=== PATIENT | male | born 1965 | race Caucasian/White ===

== ENCOUNTER 2017-04-19 10:49 | Inpatient (IN) | payer BC, OTHER ==
[2017-04-19] VITALS (32 sets, daily range): BP systolic 97–146; BP diastolic 58–104; PULSE 59–101; RESP 12–21; Ht 172.7 cm; Wt 67.0 kg
[~2017-04-19] VITALS: Ht 172.7 cm; Wt 67.0 kg
[~2017-04-19 10:49] MED LIST: AMIODARONE 150 MG INJ ONE; ATROPINE 1 MG/10 ML SYRINGE ONE
[2017-04-19] MEDS ORDERED: morphine 4 MG/ML VIAL IV STA (10:50)
[2017-04-19] MEDS ORDERED: HEPARIN 1000 UNITS/ML 10 ML INJ IV STA (10:50)
[2017-04-19] MEDS ORDERED: ONDANSETRON 4 MG INJ IV STA (10:50)
[2017-04-19] MEDS ORDERED: SOD CHLORIDE 0.9% 500 ML IV STA (10:50)
[2017-04-19] MEDS ORDERED: morphine 4 MG/ML VIAL ONE (10:59)
[2017-04-19] MEDS ORDERED: VERAPAMIL 5 MG INJ ONE (11:06)
[2017-04-19] MEDS ORDERED: MIDAZOLAM 1 MG/ML 2 ML INJ ONE (11:06)
[2017-04-19] MEDS ORDERED: LIDOCAINE 1% (MDV) 20 ML INJ ONE (11:06)
[2017-04-19] MEDS ORDERED: IODIXANOL LOCM 100 ML BTL ONE (11:06)
[2017-04-19] MEDS ORDERED: IOHEXOL 350MG/ML 50 ML BTL ONE (11:06)
[2017-04-19] MEDS ORDERED: HEPARIN 1000 UNITS/ML 10 ML INJ ONE (11:06)
[2017-04-19] MEDS ORDERED: FENTAnyl 50 MCG/ML VIAL ONE (11:06)
[2017-04-19] MEDS ORDERED: NITROGLYCERIN (IC) 100 MCG/ML INJ ONE (11:07)
--- NOTE | 2017-04-19 11:09 | ERD ---
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 This is a 51-year-old gentleman with no past medical history though he is a smoker. The patient presents with sudden onset right- sided chest pain and pressure with associated nausea and diaphoresis. EMS EKG showed ST elevation myocardial infarction. The patient has 8 out of 10 pain that is constant. No back pain. ROS All systems reviewed and are negative except as per history of present illness. Allergies Allergies: Coded Allergies: No Known Allergy (Unverified , 05/05/13) PMhx/Soc History of Surgery: No Anesthesia Reaction: No Hx Neurological Disorder: No Hx Respiratory Disorders: No Hx Cardiac Disorders: Yes (htn) Hx Psychiatric Problems: Yes (depression) Hx Miscellaneous Medical Probl: Yes (depressive d/o, htn) Hx Alcohol Use: No Hx Substance Use: No Hx Tobacco Use: Yes FmHx Family History: No diabetes Physical Exam Vitals Vital Signs Date Time Temp Pulse Resp B/P Pulse Ox O2 Delivery O2 Flow Rate FiO2 04/19/17 10:59 98.7 66 24 103/70 99 Physical Exam General: Diaphoretic, ill-appearing, uncomfortable Head: Normocephalic, atraumatic. Eyes: Pupils equally reactive, EOM intact ENT: Moist mucous membranes Neck: Supple, no lymphadenopathy Respiratory: Lungs clear bilaterally, no distress Cardiovascular: RRR, no murmurs, rubs, or gallops Abdominal: Soft, non-tender, non-distended, no peritoneal signs : Deferred MSK: No edema, no unilateral swelling, 5/5 strength, no pulse deficits Neurologic: Alert and oriented, moving all extremities, normal speech, no focal weakness, no cerebellar signs Skin: No rash Psych: Normal mood Result Diagram: 04/19/17 1100 04/19/17 1100 Results 24 hrs Laboratory Tests Test 04/19/17 11:00 White Blood Count 10.510^3/ul Red Blood Count 4.3710^6/ul Hemoglobin 13.6g/dl Hematocrit 40.3% Mean Corpuscular Volume 92.2fl Mean Corpuscular Hemoglobin 31.1pg Mean Corpuscular Hemoglobin Concent 33.7g/dl Red Cell Distribution Width 13.1% Platelet Count 13337^3/UL Mean Platelet Volume 10.9fl Neutrophils % 49.0% Lymphocytes % 40.4% Monocytes % 9.3% Eosinophils % 0.6% Basophils % 0.6% Nucleated Red Blood Cells % 0.0/100WBC Neutrophils # 5.210^3/ul Lymphocytes # 4.310^3/ul Monocytes # 1.010^3/ul Eosinophils # 0.110^3/ul Basophils # 0.110^3/ul Nucleated Red Blood Cells # 0.010^3/ul Prothrombin Time 14.0Sec Prothrombin Time Ratio 1.1 INR International Normalized Ratio 1.07 Activated Partial Thromboplast Time 50.7Sec Sodium Level 143mmol/L Potassium Level 3.7mmol/L Chloride Level 110mmol/L Carbon Dioxide Level 23mmol/L Anion Gap 14 Blood Urea Nitrogen 17mg/dl Creatinine 0.79mg/dl Glucose Level 126mg/dl Calcium Level 8.7mg/dl Troponin I Pending Current Medications Medications (Trade) Dose Ordered Sig/Vida Route PRN Reason Start Time Stop Time Status Last Admin Dose Admin Sodium Chloride (NS) 500 ml @ 500 mls/hr Q1H STAT IV 04/19/17 10:50 04/19/17 11:49 DC 04/19/17 11:10 Morphine Sulfate (morphine) 4 mg ONCE STAT IV 04/19/17 10:50 04/19/17 10:54 DC 04/19/17 11:10 Ondansetron HCl (Zofran Inj) 4 mg ONCE STAT IV 04/19/17 10:50 04/19/17 10:54 DC Heparin Sodium (Porcine) (Heparin (1000 Units/ml)) 4,020 unit ONCE STAT IV 04/19/17 10:50 04/19/17 10:54 DC 04/19/17 11:10 Procedures/MDM EKG, MONITORS, & DIAGNOSTIC IMAGING: Field EKG: EKG: I reviewed and interpreted a 12-lead EKG. Rhythm: Normal sinus rhythm Ectopy: None Intervals: No abnormalities ST segments: Inferior STEMI with reciprocal changes T waves: No contiguous inversions EKG in ER EKG: I reviewed and interpreted a 12-lead EKG. Rhythm: Normal sinus rhythm Ectopy: None Intervals: No abnormalities ST segments: ST elevations in inferior leads with reciprocal changes T waves: No contiguous inversions Chest x-ray: I reviewed and interpreted a 1 view of the chest Mediastinum: No enlargement Cardiac silhouette: No cardiomegaly Airspace: Mild interstitial process Bones: No evidence of fracture LAB INTERPRETATION: Pending MEDICAL DECISION MAKING: [facility] with an EKG is consistent with ST elevation myocardial infarction STEMI assessment and timing: Onset of symptoms: 20 minutes prior to arrival Arrival to ED: 1048 STEMI code activation: 1043 Initial conversation with cardiology: 1044 Patient taken to Electro Tech: 1101 nuclear security officer on-call: Dr. Morales Critical Care Note: Total time: 20 minutes Indication/Organ System Threat: Acute EKG changes suggestive of ST elevation myocardial infarction and significant risk for cardiovascular compromise and collapse. I spent the above amount of critical care time with the patient, not including billable procedures. This included chart review, consultations, repeat bedside evaluations, and titration of appropriate medications to prevent cardiopulmonary or respiratory collapse. ER COURSE: Upon arrival the patient was placed on the monitor. 2 large-bore peripheral IVs were inserted. Pacer pads and defibrillator pads were placed on the patient. The patient had received aspirin and nitroglycerin. No further nitroglycerin given inferior AR. The patient was written for weight-based dosing of heparin bolus based on recommendations by the plate stacker. Morphine and Zofran provided. Prior to transfer the patient is protecting his airway. The catheter team was readily available into the bedside. It should be noted that there was a delay in laboratory response time. The patient had labs drawn just prior to moving to the Electro Tech. I kept the patient and/or family informed of laboratory and diagnostic imaging results throughout the emergency room course. DISPOSITION PLAN: Patient emergently taken to the Electro Tech. CONSULTATION: Accepting care team and consultations: I discussed the current laboratory data, diagnostic imaging and emergency care provided. Admitting team: Dr. Peguero to accept the patient Admitting team indication: Insurance directed Consulting services: nuclear security officer, Dr Morales Departure Diagnosis: Primary Impression: STEMI (ST elevation myocardial infarction) Involved coronary artery: unspecified coronary artery Qualified Code: I21.3 - ST elevation myocardial infarction (STEMI), unspecified artery Condition: Critical TAD MON MD Apr 19, 2017 11:09
[2017-04-19 11:13] LABS: BASOPHIL # 0.1 10^3/ul (0.0-0.1); BASOPHILS % 0.6 % (0.0-2.0); EOSINOPHILS # 0.1 10^3/ul (0.0-0.5); EOSINOPHILS % 0.6 % (0.0-7.0); HEMATOCRIT 40.3 % (42.0-52.0); HEMOGLOBIN 13.6 g/dl (14.0-18.0); LYMPHOCYTES # 4.3 10^3/ul (0.8-2.9); LYMPHOCYTES % 40.4 % (15.0-51.0); MEAN CORPUSCULAR HEMOGLOBIN 31.1 pg (29.0-33.0); MEAN CORPUSCULAR HGB CONC 33.7 g/dl (32.0-37.0); MEAN CORPUSCULAR VOLUME 92.2 fl (82.0-101.0); MEAN PLATELET VOLUME 10.9 fl (7.4-10.4); MONOCYTES % 9.3 % (0.0-11.0); NEUTROPHIL # 5.2 10^3/ul (1.6-7.5); PLATELET COUNT 150 10^3/UL (140-415); RED BLOOD COUNT 4.37 10^6/ul (4.70-6.10); RED CELL DISTRIBUTION WIDTH 13.1 % (11.5-14.5); WHITE BLOOD COUNT 10.5 10^3/ul (4.8-10.8)
[2017-04-19] MEDS ORDERED: NORepinephrine 4 MG INJ ONE (11:14)
[2017-04-19] MEDS ORDERED: NORepinephrine 8MG/250 ML (PMX 250 ML ONE (11:17)
--- NOTE | 2017-04-19 11:20 | RADRPT ---
PROCEDURE: XR Chest. CLINICAL INDICATION: Chest pain TECHNIQUE: Single frontal view of the chest was obtained COMPARISON: None FINDINGS: The heart and mediastinum are within normal limits. The lungs are clear. There is no pleural effusion or pneumothorax. The bones and soft tissue show no acute change. IMPRESSION: No definite abnormalities are identified. RPTAT:AAJJ Corey Marquez Physician Date Time Electronically viewed and signed by Corey Marquez Physician on 04/19/2017 11:20 /
[2017-04-19 11:30] LABS: INR 1.07; PT RATIO 1.1
[2017-04-19 11:31] LABS: PARTIAL THROMBOPLASTIN TIME 50.7 Sec (25.0-35.0)
[2017-04-19] MEDS ORDERED: TICAGRELOR 90 MG TABLET ONE (11:34)
[2017-04-19 11:38] LABS: CALCIUM 8.7 mg/dl (8.4-10.2); POTASSIUM 3.7 mmol/L (3.5-5.1)
[2017-04-19 11:39] LABS: CREATININE 0.79 mg/dl (0.61-1.24)
[2017-04-19] MEDS ORDERED: SOD CHLORIDE 0.9% 1,000 ML ONE (11:39)
[2017-04-19] MEDS ORDERED: BIVALIRUDIN 250MG /NS 50 ML 50 ML IVPB ONE ×2 (11:40→11:50)
[2017-04-19] MEDS ORDERED: SOD CHLORIDE 0.9% 1,000 ML IV SCH (12:30)
--- NOTE | 2017-04-19 12:40 | CONS ---
Date/Time of Note Date/Time of Note DATE: 04/19/17 TIME: 12:32 Assessment/Plan Assessment/Plan Chief Complaint/Hosp Course Inferior STEMI: Cath with prox RCA 90% ulcerated plaque s/p PCI as well as mid PDA disease s/p PCI. Asymptomatic post-PCI. EF 55% by LV gram Cardiogenic shock: transient during PCI. Now off levopohed. Bradycardia: Transient during PCI, required one dose of atropine. Resolved. CAD Tobacco use: counseled on -ASA 81mg lifelong -ticagrelor 90mg BID -lipitor 80mg -metoprolol if HR/BP remain stable -echo -ICU observation Problems: Consultation Date/Type/Reason Admit Date/Time Date of Consultation: Apr 19, 2017 Type of Consultation: INterventional Cardiology Reason for Consultation inferior STEMI Referring Provider: TAD MON MD Hx of Present Illness 51 yo M with a h/o tobacco use, who presented with acute onset chest pail while at home. He was noted to have inferior ST elevation by paramedics for which STEMI was activated. Upon arrival the pt had confirmed ST elevations though improved. He looked very uncomfortable and was having severe chest pain. He was taken to the cardiac record label intern emergently where he underwent PCI of his prox RCA and mid PDA. He required levophed during the case but eventually stabilized and was off pressors and asymptomatic by the end of the case. per hpi Past Medical History per hPI Social History Smoking Status: Current every day smoker Exam/Review of Systems Vital Signs Vitals Vital Signs Date Time Temp Pulse Resp B/P Pulse Ox O2 Delivery O2 Flow Rate FiO2 04/19/17 11:02 Nasal Cannula 4 04/19/17 10:59 98.7 66 24 103/70 99 Exam Constitutional: alert, distress (severe distress pre-PCI exam, resolved post), oriented Head: atraumatic, normocephalic Neck: supple, No jvd Respiratory: clear to auscultation, No crackles/rales, No diminished breath sounds Cardiovascular: No edema, No regular rate and rhythm (tachycardic prior to PCI , normal after), No systolic murmur Gastrointestinal: non-tender, soft Musculoskeletal: nl extremities to inspection Extremities: normal pulses Neurological: nl mental status, nl speech Skin: No rash or lesions Results EKG by paramedics with significant inferior HIMANSHU EKG in ED with still diagnostic ST elevation but improved. Result Diagram: 04/19/17 1100 04/19/17 1100 Results 24 hrs Laboratory Tests Test 04/19/17 11:00 White Blood Count 10.5 Red Blood Count 4.37 L Hemoglobin 13.6 L Hematocrit 40.3 L Mean Corpuscular Volume 92.2 Mean Corpuscular Hemoglobin 31.1 Mean Corpuscular Hemoglobin Concent 33.7 Red Cell Distribution Width 13.1 Platelet Count 150 Mean Platelet Volume 10.9 H Neutrophils % 49.0 Lymphocytes % 40.4 Monocytes % 9.3 Eosinophils % 0.6 Basophils % 0.6 Nucleated Red Blood Cells % 0.0 Neutrophils # 5.2 Lymphocytes # 4.3 H Monocytes # 1.0 H Eosinophils # 0.1 Basophils # 0.1 Nucleated Red Blood Cells # 0.0 Prothrombin Time 14.0 Prothrombin Time Ratio 1.1 INR International Normalized Ratio 1.07 Activated Partial Thromboplast Time 50.7 H Sodium Level 143 Potassium Level 3.7 Chloride Level 110 Carbon Dioxide Level 23 Anion Gap 14 Blood Urea Nitrogen 17 Creatinine 0.79 Glucose Level 126 Calcium Level 8.7 Troponin I Pending Medications Medications Current Medications Miscellaneous Information HOLD all METFORMIN ... ONCE ONCE XX ; Start at 12:30; Stop 04/19/17 at 12:31; Status UNV Sodium Chloride (NS) 1,000 ml @ 75 mls/hr [id number] IV ; Start 04/19/17 at 12:30 ; Stop 04/19/17 at 17:29; Status UNV MAHESH CALDWELL Apr 19, 2017 12:40
--- NOTE | 2017-04-19 12:49 | OPR ---
Date/Time of Note Date/Time of Note DATE: 04/19/17 TIME: 12:41 Operative Report Preoperative Diagnosis Inferior STEMI Postoperative Diagnosis same, s/p PCI Surgeon see signature line Agency Trainer none Anesthesia Type: moderate sedation Estimated Blood Loss: minimal Transfusion none Specimen none Grafts/Implants none Complications none Procedure Description Procedure Date: 04/19/2017 Site Safety Coordinator/surgeon: Mahesh Morales MD. Procedures Performed: 1)Left heart catheterization with selective left and right coronary angiography. 2)Left ventricle angiography 3)Balloon angioplasty and stenting of the prox RCA with a Resolute Omar 2.5 x 26 and Resolute Omar 3.0 x 8 AISHA (overlapping) 4)Balloon angioplasty and stenting of the mid PDA with a Resolute [place] 2.25 x 22 AISHA Pre-operative Diagnosis:inferior STEMI Post-operative Diagnosis: same, s/p PCI of prox RCA and mid PDA Indications:51 yo M with a h/o tobacco use, who presented with acute onset chest pail while at home. He was noted to have inferior ST elevation by paramedics for which STEMI was activated. Upon arrival the pt had confirmed ST elevations though improved. He looked very uncomfortable and was having severe chest pain. He was taken to the cardiac clinical laboratory technician emergently Description of Procedure: After informed consent, the patient was brought to the cardiac catheterization lab. The procedure site was prepped and draped in usual manner. 5 mL lidocaine was injected into the right groin. Next using the Seldinger wall technique, the 6 samoan sheath was inserted into the right femoral artery. Next using the JL4 and JR4 guide, selective angiography of the left and right coronary arteries were obtained. The decision was made to proceed with PCI of the RCA. The 6 samoan JR4 guide was advanced and engaged into the right coronary artery. After appropriate anticoagulation and antiplatelets were given, the BMW angioplasty wire was advanced past the lesion. Tropine was given for bradycardia and levophed started for hypotension. Next the 2.0 X 12 balloon was used to dilate the prox/ mid lesion times 3 at a maximum of 8 charles. Then the mid PDA was dilated x 2 at 8 charles. The PDA was initially not stented as it was unclear if it was at least 2.25 mm in size. Subsequently, the Resolute Omar 2.5 x 26 stent was advanced to the prox/mid lesion and deployed at 12 charles.Angiography revealed a likely proximal stent edge dissection so a Resolute 3.0 x 8 stent was advanced and deployed at 12 charles (overlapping). The stent balloon was used to dilate the overlapping segment at 12 charles. NTG IC was given and the PDA was noted to be larger so the Resolute 2.25 x 22 stent was advanced to the mid PDA and deployed at nominal pressure. Next the prox stent was post dilated with the 2.75 X 15 noncompliant balloon times 3 at a maximum of 12 charles. Final angiography revealed SARKIS 3 flow, no edge dissection, and appropriate stent expansion. Next all equipment was removed and hemostasis was achieved by manual compression Findings: Anatomy/Hemodynamics: Left main: normal LAD:calcified, luminal irregularities Diagonal:luminal irregularities Circumflex:luminal irregularities Obtuse marginal:luminal irregularities RCA: prox-mid long ulcerated 90% PDA:mid 90% PLV:luminal irregularities LV angiography: at end of case showed EF 55% with mild inferior hypokinesis LV-Ao: no gradient LVEDP: 8 mmHg Contrast used: 200 mL Fluoroscopy time: 10.6 min Medications used: Versed 1 Fentanyl 50 Angiomax ASA given in ED ticagrelor 180mg Equipment used: 6 samoan JR 4 guide BMW angioplasty wire 2 x 12 balloon Omar 2.5 x 26, 3.0 x 8, 2.25 x 22 drug eluting stents 2.75 x 15 noncompliant balloon Estimated blood loss<10 mL. Specimen: none Grafts/implants: none Complications: none Assessment/Plan Inferior STEMI: Cath with prox RCA 90% ulcerated plaque s/p PCI as well as mid PDA disease s/p PCI. Asymptomatic post-PCI. EF 55% by LV gram Cardiogenic shock: transient during PCI. Now off levopohed. Bradycardia: Transient during PCI, required one dose of atropine. Resolved. CAD Tobacco use: counseled on -ASA 81mg lifelong -ticagrelor 90mg BID -lipitor 80mg -metoprolol if HR/BP remain stable -echo -ICU observation MAHESH MORALES Apr 19, 2017 12:49
[2017-04-19 13:29] LABS: TROPONIN-I 0.043 ng/ml (0.00-0.12)
--- NOTE | 2017-04-19 14:28 | HP ---
Date/Time of Note Date/Time of Note DATE: 04/19/17 TIME: 14:00 Assessment/Plan VTE Prophylaxis VTE Prophylaxis Intervention: SCD's Lines/Catheters IV Catheter Type [facility]from [facility]): Saline Lock Urinary Cath still in place: No Assessment/Plan Assessment/Plan 51-year-old male who was brought in by EMS because of chest pain and shortness of breath and was found to have ST elevation myocardial infarction now admitted and managed as follows: 1. Inferior wall ST elevation myocardial infarction status post emergent cardiac cath with proximal RCA 90% stenosis status post PCI and mid PDA disease also status post PCI with drug-eluting stent 2. Transient cardiogenic shock during procedure: Patient required short course of pressors, patient is currently off pressors continue monitoring 3. Chronic coronary artery disease: Patient has been started on aspirin, Brilinta, Lipitor, metoprolol as tolerated 4. Chronic tobacco abuse: Please see below Disposition: There is report of elevated blood pressure, but no evidence of hypertension at this time, we will continue to monitor. Continue ICU care and support at this time, pain control as necessary. Continue routine post catheterization care, Smoking Cessation Therapy: Pt. was lectured for greater than 3 minutes on the health risks of continued smoking and the benefits of cessation. and this will continue to be reinforced throughout hospitalization. Further interventions per clinical course HPI/ROS Admit Date/Time Admit Date/Time 04/19/17 Hx of Present Illness This is a 51-year-old male who developed sudden right-sided chest pain at home, it is associated with nausea and diaphoresis but no vomiting. There is no fever , no abdominal pain, no recent history of dysuria hematuria or cough. Patient also denies palpitation. Patient is a chronic smoker. He called EMS, when paramedics arrived the patient was found to be in an acute ST elevation myocardial infarction. He was given aspirin around the hospital, and immediately go to the hospital he was emergently taken to the Associate Software Engineer. He underwent PCI of his proximal RCA and mid PDA. Is currently being observed in the intensive care unit as is routine for post Procedures. He apparently suffered a transient episode of bradycardia as well as hypotension during the procedure. These were treated with short course of Levophed as well as atropine. She is currently somewhat drowsy, but he will arouse and answer questions, he states his pain is well controlled at this time. He has no new issues. ROS 12 point review if systems was done and pertinent findings are as noted. PMH/Family/Social Past Medical History * htn: no home meds * xic back pain * depression: no meds Past Surgical History Past Surgical Hx: no surgical history Social History Alcohol Use: occasionally Smoking Status: Current every day smoker Drug Use: none Exam/Review of Systems Vital Signs Vitals VS - Last 72 Hours, by Label Date Time Temp Pulse Resp B/P Pulse Ox O2 Delivery O2 Flow Rate FiO2 04/19/17 13:00 73 13 114/69 98 Room Air 04/19/17 12:15 98.2 101 15 110/68 99 Room Air 04/19/17 11:02 Nasal Cannula 4 04/19/17 10:59 98.7 66 24 103/70 99 Vital Signs Date Time Temp Pulse Resp B/P Pulse Ox O2 Delivery O2 Flow Rate FiO2 04/19/17 13:00 73 13 114/69 98 Room Air 04/19/17 12:15 98.2 04/19/17 11:02 4 Exam Constitutional: other (drowsy and lethargic) Head: atraumatic, normocephalic Eyes: PERRL Neck: supple Respiratory: clear to auscultation, diminished breath sounds Cardiovascular: regular rate and rhythm, No murmurs/extra sounds Gastrointestinal: bowel sounds, non-tender, soft Extremities: No edema Labs Result Diagram: 04/19/17 1100 04/19/17 1100 Medications Medications Current Medications Miscellaneous Information HOLD all METFORMIN ... ONCE XX ; Start 04/19/17 at 12 :30; Stop 04/21/17 at 12:29 Sodium Chloride (NS) 1,000 ml @ 75 mls/hr [id number] IV Last administered on t 13:29; Admin Dose 75 MLS/HR; Start 04/19/17 at 12:30; Stop 04/19/17 at 17:29 Aspirin (Aspirin) 81 mg DAILY PO ; Start 04/20/17 at 09:00 Ticagrelor (Brilinta) 90 mg BID PO ; Start 04/19/17 at 21:00 Atorvastatin Calcium (Lipitor) 80 mg HS PO ; Start 04/19/17 at 21:00 LIVE ROSAS Apr 19, 2017 14:11
[2017-04-19] MEDS ORDERED: morphine LIQ (10 MG/5 ML) CUP PO PRN (16:00)
[2017-04-19] MEDS ORDERED: DIPHENHYDRAMINE 50 MG INJ IV ONE ×2 (16:30→23:00)
[2017-04-19] MEDS ORDERED: ATROPINE 1 MG/10 ML SYRINGE ONE (17:14)
[2017-04-19 17:31] LABS: CK-MB 6.72 ng/ml (0.0-2.4)
[2017-04-19 17:33] LABS: TROPONIN-I 2.19 ng/ml (0.00-0.12)
--- NOTE | 2017-04-19 17:38 | RADRPT ---
Echocardiogram Report Patient Name: SILVINO SILVA Gender: Male Date: 1965 Study Date: 19-Apr-2017 Press Machine Operator: Shailesh Rizzo [facility] Location: [address] Ref. Physician: LIVE ROSAS Quality: Adequate Procedures: Transthoracic echocardiogram with complete 2D, M-Mode, and doppler examination. Indications: Stemi. 2D/M Mode Doppler Measurement Value Normal Ranges Measurement Value Normal Ranges LVIDd 2D 4.9 3.5 - 5.6 cm AV Peak Brien 1.3 m/sec LVIDs 2D 3.2 2.1 - 4.1 cm AV Peak PG 7.0 mmHg FS 2D 35.4 % LVOT Peak Brien 0.8 m/sec LVPWd 2D 1.0 0.6 - 1.1 cm LVOT Peak PG 3.0 mmHg IVSd 2D 1.0 0.6 - 1.1 cm MV E Peak Brien 0.8 m/sec IVS/LVPW 2D 1.0 MV A Peak Brien 0.6 m/sec AoR Diam 2D 2.2 2.0 - 3.7 cm MV E/A 1.3 LA/Ao 2D 1 0 - 1 MV Decel Time 173 msec EDV 2D 121.0 cm3 MV E/A 1.3 ESV 2D 32.5 cm3 TR Peak Brien 3.2 m/sec LA Dimen 2D 3.0 2.3 - 4.0 cm TR Peak PG 40.0 mmHg RVSP 43.0 mmHg Findings Left Ventricle: Normal left ventricular systolic function. Normal left ventricular cavity size. Normal left ventricular wall thickness. Ejection fraction is visually estimated at 60 %. Right Ventricle: Normal right ventricular size. Normal right ventricular systolic function. Left Atrium: The left atrium is normal in size. Right Atrium: The right atrium is normal in size. Mitral Valve: Mild mitral leaflet calcification. Mild mitral annular calcification. Trace mitral regurgitation. Aortic Valve: Normal appearance of the aortic valve. Tricuspid Valve: Normal appearance of the tricuspid valve. Estimated peak PA systolic pressure 43 mmHg. There is mild to moderate tricuspid regurgitation. Pulmonic Valve: Pulmonic valve not well visualized. There is trace pulmonic regurgitation. Pericardium: Normal pericardium with no significant pericardial effusion. Aorta: Normal aortic root. IVC: Normal size and normal respiratory collapse consistent with normal right atrial pressure. Conclusions 1.The left ventricle is normal in size and systolic function. 2.Estimated left ventricular ejection fraction of 60%. Electronically Signed By: Ajith Woody 19-Apr-2017 17:37:32 -0800 Patient Name: SILVINO SILVA Study Date: 19-Apr-[id number]
--- NOTE | 2017-04-19 20:35 | RADRPT ---
Vent Rate: 73 bpm RR Interval: 0 msec NE Interval: 128 msec QRS Duration: 82 msec QT Interval: 368 msec QTC Interval: 405 msec P-R-T [place]: 69 - 74 - 74 degrees Normal sinus rhythm with sinus arrhythmia Normal ECG Electronically Signed By: Roderick Jimenez [id number]
[2017-04-19] MEDS: ATORVASTATIN 80 MG TAB PO SCH (21:02)
[2017-04-19] MEDS: TICAGRELOR 90 MG TABLET PO SCH (21:02)
[2017-04-19] MEDS: LORAZEPAM 0.5 MG TAB PO PRN (22:53)
[2017-04-19 23:57] LABS: CK-MB 11.9 ng/ml (0.0-2.4); TROPONIN-I 7.18 ng/ml (0.00-0.12)
[2017-04-20] VITALS (27 sets, daily range): BP systolic 102–154; BP diastolic 57–92; PULSE 73–90; RESP 13–25
[2017-04-20] MEDS: NICOTINE (21 MG/24 HR) PATCH TRANSDERM SCH ×2 (00:39→08:31)
[2017-04-20 06:37] LABS: BASOPHILS % 0.3 % (0.0-2.0); EOSINOPHILS # 0.1 10^3/ul (0.0-0.5); EOSINOPHILS % 0.6 % (0.0-7.0); HEMATOCRIT 39.6 % (42.0-52.0); HEMOGLOBIN 13.2 g/dl (14.0-18.0); LYMPHOCYTES # 2.2 10^3/ul (0.8-2.9); LYMPHOCYTES % 22.6 % (15.0-51.0); MEAN CORPUSCULAR HGB CONC 33.3 g/dl (32.0-37.0); MEAN PLATELET VOLUME 11.3 fl (7.4-10.4); MONOCYTE # 0.7 10^3/ul (0.3-0.9); NEUTROPHIL # 6.7 10^3/ul (1.6-7.5); NEUTROPHILS % 69.2 % (39.0-77.0); PLATELET COUNT 162 10^3/UL (140-415); RED BLOOD COUNT 4.26 10^6/ul (4.70-6.10); RED CELL DISTRIBUTION WIDTH 13.2 % (11.5-14.5); WHITE BLOOD COUNT 9.6 10^3/ul (4.8-10.8)
[2017-04-20 07:01] LABS: CALCIUM 8.8 mg/dl (8.4-10.2); CHOL/HDL RATIO 5.7 RATIO; CREATININE 0.79 mg/dl (0.61-1.24); MAGNESIUM 1.9 mg/dl (1.7-2.5); PHOSPHORUS 3.1 mg/dl (2.5-4.9)
[2017-04-20] MEDS: ASPIRIN 81 MG TAB PO SCH (08:30)
[2017-04-20] MEDS: TICAGRELOR 90 MG TABLET PO SCH ×2 (08:32→22:39)
[2017-04-20] MEDS ORDERED: NICOTINE (21 MG/24 HR) PATCH TRANSDERM SCH (09:00)
--- NOTE | 2017-04-20 09:29 | PN ---
Date/Time of Note Date/Time of Note DATE: 04/20/17 TIME: 09:28 Assessment/Plan VTE Prophylaxis VTE Prophylaxis Intervention: SCD's Lines/Catheters IV [facility]ter Type (from [facility]): Peripheral IV Urinary Cath still in place: No Assessment/Plan Assessment/Plan 51-year-old male who was brought in by EMS because of chest pain and shortness of breath and was found to have ST elevation myocardial infarction now admitted and managed as follows: 1. Inferior wall ST elevation myocardial infarction status post emergent cardiac cath with proximal RCA 90% stenosis status post PCI and mid PDA disease also status post PCI with drug-eluting stent 2. Transient cardiogenic shock during procedure: Patient required short course of pressors, patient is currently off pressors continue monitoring 3. Chronic coronary artery disease: Patient has been started on aspirin, Brilinta, Lipitor, metoprolol as tolerated 4. Chronic tobacco abuse: Please see below Disposition: Patient is much improved. Will transfer to [facility] if ok with cardiology, defer d/ c timing to cards Continue current supportive care. Smoking Cessation Therapy: Pt. has been advised for greater than 3 minutes on the health risks of continued smoking and the benefits of cessation. and this will continue to be reinforced throughout hospitalization. Further interventions per clinical course Subjective 24 Hr Interval Summary Free Text/Dictation patient seen, no more CP or SOB, desires d/c Exam/Review of Systems Vital Signs Vitals Vital Signs Date Time Temp Pulse Resp B/P Pulse Ox O2 Delivery O2 Flow Rate FiO2 04/20/17 08:00 90 04/20/17 07:00 97.7 18 125/77 97 Room Air 04/19/17 11:02 4 Intake and Output 04/19/17 04/19/17 04/20/17 15:00 23:00 07:00 Intake Total 150 ml 645 ml 150 ml Output Total 350 ml 100 ml Balance 150 ml 295 ml 50 ml Exam Constitutional: alert, oriented, No distress Psych: nl mood/affect Head: atraumatic, normocephalic Eyes: PERRL ENMT: mucosa pink and moist Neck: non-tender, supple Respiratory: clear to auscultation, normal air movement Cardiovascular: regular rate and rhythm, No murmurs/extra sounds Gastrointestinal: bowel sounds, non-tender, soft Extremities: No edema Results Result Diagram: 04/20/17 0600 04/20/17 0600 Results 24 hrs Laboratory Tests Test 04/19/17 11:00 04/19/17 16:35 04/19/17 23:01 04/20/17 06:00 White Blood Count 10.5 9.6 Red Blood Count 4.37 L 4.26 L Hemoglobin 13.6 L 13.2 L Hematocrit 40.3 L 39.6 L Mean Corpuscular Volume 92.2 93.0 Mean Corpuscular Hemoglobin 31.1 31.0 Mean Corpuscular Hemoglobin Concent 33.7 33.3 Red Cell Distribution Width 13.1 13.2 Platelet Count 150 162 Mean Platelet Volume 10.9 H 11.3 H Neutrophils % 49.0 69.2 Lymphocytes % 40.4 22.6 Monocytes % 9.3 7.0 Eosinophils % 0.6 0.6 Basophils % 0.6 0.3 Nucleated Red Blood Cells % 0.0 0.0 Neutrophils # 5.2 6.7 Lymphocytes # 4.3 H 2.2 Monocytes # 1.0 H 0.7 Eosinophils # 0.1 0.1 Basophils # 0.1 0.0 Nucleated Red Blood Cells # 0.0 0.0 Prothrombin Time 14.0 Prothrombin Time Ratio 1.1 INR International Normalized Ratio 1.07 Activated Partial Thromboplast Time 50.7 H Sodium Level 143 142 Potassium Level 3.7 4.0 Chloride Level 110 108 Carbon Dioxide Level 23 28 Anion Gap 14 10 Blood Urea Nitrogen 17 15 Creatinine 0.79 0.79 Glucose Level 126 101 Calcium Level 8.7 8.8 Troponin I 0.043 2.190 *H 7.180 *H Creatine Kinase 190 320 H Creatine Kinase Index 3.5 3.7 Creatinine Kinase MB (Mass) 6.72 H 11.90 H Phosphorus Level 3.1 Magnesium Level 1.9 Triglycerides Level 160 H Cholesterol Level 189 LDL Cholesterol, Calculated 124 HDL Cholesterol 33 Cholesterol/HDL Ratio 5.7 Test 04/20/17 06:01 Hemoglobin A1c 5.1 Medications Medications Current Medications Miscellaneous Information (* Miscellaneous Pharmacy Order) HOLD all METFORMIN ... ONCE XX ; Start 04/19/17 at 12:30; Stop 04/21/17 at 12:29 Aspirin (Aspirin) 81 mg DAILY PO Last administered on 04/20/17t 08:30; Admin Dose 81 MG; Start 04/20/17 at 09:00 Ticagrelor (Brilinta) 90 mg BID PO Last administered on 04/20/17 08:32; Admin Dose 90 MG; Start 04/19/17 at 21:00 Atorvastatin Calcium (Lipitor) 80 mg HS PO Last administered on 04/19/17 21: 02; Admin Dose 80 MG; Start 04/19/17 at 21:00 Lorazepam (Ativan) 0.5 mg Q6H PRN PO AGITATION/ANXIETY Last administered on 22:53; Admin Dose 0.5 MG; Start 04/19/17 at 16:00 Morphine Sulfate (morphine) 6 mg Q4H PRN PO PAIN; Start 04/19/17 at 16:00 Nicotine (Nicoderm 21 Mg/ 24hr) 1 patch DAILY TRANSDERM Last administered on 08:31; Admin Dose 1 PATCH; Start 04/20/17 at 00:00 LIVE ROSAS Apr 20, 2017 09:29
[2017-04-20] MEDS: METOPROLOL (XL) 25 MG TAB PO SCH (10:26)
--- NOTE | 2017-04-20 13:04 | CONS ---
Date/Time of Note Date/Time of Note DATE: 04/20/17 TIME: 13:03 Assessment/Plan Assessment/Plan Chief Complaint/Hosp Course Inferior STEMI: Cath with prox RCA 90% ulcerated plaque s/p PCI as well as mid PDA disease s/p PCI. Asymptomatic post-PCI. EF 55% by LV gram Cardiogenic shock: transient during PCI. Now off levopohed. Bradycardia: Transient during PCI, required one dose of atropine. Resolved. CAD Tobacco use: counseled on -ASA 81mg lifelong -ticagrelor 90mg BID -lipitor 80mg -start metoprolol succ 25mg daily -f/u echo -ok to transfer to tele -home in am if no issues Problems: Consultation Date/Type/Reason Admit Date/Time Apr 19, 2017 at 14:08 Initial Consult Date 04/19/17 Type of Consultation: Interventional Cardiology Referring Provider: TAD MON MD 24 HR Interval Summary Free Text/Dictation No o/n events. No symptoms. Very eager to go home but agreeable to staying Exam/Review of Systems Vital Signs Vitals Vital Signs Date Time Temp Pulse Resp B/P Pulse Ox O2 Delivery O2 Flow Rate FiO2 04/20/17 12:00 79 04/20/17 09:00 17 132/92 97 Room Air 04/20/17 07:00 97.7 04/19/17 11:02 4 Intake and Output 04/19/17 04/19/17 04/20/17 15:00 23:00 07:00 Intake Total 150 ml 645 ml 150 ml Output Total 350 ml 100 ml Balance 150 ml 295 ml 50 ml Exam Constitutional: alert, oriented Psych: nl mood/affect, no complaints Head: atraumatic, normocephalic Neck: No jvd Respiratory: clear to auscultation, No crackles/rales Cardiovascular: regular rate and rhythm, No edema Gastrointestinal: non-tender, soft Extremities: other (right groin no hematoma ) Neurological: nl mental status, nl speech Results Result Diagram: 04/20/17 0600 04/20/17 0600 Results 24 hrs Laboratory Tests Test 04/19/17 16:35 04/19/17 23:01 04/20/17 06:00 04/20/17 06:01 Creatine Kinase 190 320 H Creatine Kinase Index 3.5 3.7 Creatinine Kinase MB (Mass) 6.72 H 11.90 H Troponin I 2.190 *H 7.180 *H White Blood Count 9.6 Red Blood Count 4.26 L Hemoglobin 13.2 L Hematocrit 39.6 L Mean Corpuscular Volume 93.0 Mean Corpuscular Hemoglobin 31.0 Mean Corpuscular Hemoglobin Concent 33.3 Red Cell Distribution Width 13.2 Platelet Count 162 Mean Platelet Volume 11.3 H Neutrophils % 69.2 Lymphocytes % 22.6 Monocytes % 7.0 Eosinophils % 0.6 Basophils % 0.3 Nucleated Red Blood Cells % 0.0 Neutrophils # 6.7 Lymphocytes # 2.2 Monocytes # 0.7 Eosinophils # 0.1 Basophils # 0.0 Nucleated Red Blood Cells # 0.0 Sodium Level 142 Potassium Level 4.0 Chloride Level 108 Carbon Dioxide Level 28 Anion Gap 10 Blood Urea Nitrogen 15 Creatinine 0.79 Glucose Level 101 Calcium Level 8.8 Phosphorus Level 3.1 Magnesium Level 1.9 Triglycerides Level 160 H Cholesterol Level 189 LDL Cholesterol, Calculated 124 HDL Cholesterol 33 Cholesterol/HDL Ratio 5.7 Hemoglobin A1c 5.1 Medications Medications Current Medications Miscellaneous Information (* Miscellaneous Pharmacy Order) HOLD all METFORMIN ... ONCE XX ; Start 04/19/17 at 12:30; Stop 04/21/17 at 12:29 Aspirin (Aspirin) 81 mg DAILY PO Last administered on 04/20/17 08:30; Admin Dose 81 MG; Start 04/20/17 at 09:00 Ticagrelor (Brilinta) 90 mg BID PO Last administered on 04/20/17 08:32; Admin Dose 90 MG; Start 04/19/17 at 21:00 Atorvastatin Calcium (Lipitor) 80 mg HS PO Last administered on 04/19/17 21: 02; Admin Dose 80 MG; Start 04/19/17 at 21:00 Lorazepam (Ativan) 0.5 mg Q6H PRN PO AGITATION/ANXIETY Last administered on 22:53; Admin Dose 0.5 MG; Start 04/19/17 at 16:00 Morphine Sulfate (morphine) 6 mg Q4H PRN PO PAIN; Start 04/19/17 at 16:00 Nicotine (Nicoderm 21 Mg/ 24hr) 1 patch DAILY TRANSDERM Last administered on 08:31; Admin Dose 1 PATCH; Start 04/20/17 at 00:00 Metoprolol Succinate (Toprol Xl) 25 mg DAILY PO Last administered on t 10:26; Admin Dose 25 MG; Start 04/20/17 at 10:00 MAHESH CALDWELL Apr 20, 2017 13:04
[2017-04-20] MEDS ORDERED: DIPHENHYDRAMINE 50 MG INJ IV ONE (16:30)
[2017-04-20] MEDS ORDERED: DIPHENHYDRAMINE 50 MG CAP PO PRN (21:00)
[2017-04-20] MEDS: ATORVASTATIN 80 MG TAB PO SCH (21:07)
[2017-04-20] MEDS: LORAZEPAM 0.5 MG TAB PO PRN (22:39)
[2017-04-21 00:26] VITALS: BP 109/56; RESP 19
[2017-04-21 00:41] VITALS: PULSE 78
[2017-04-21 04:00] VITALS: BP 123/74; RESP 18
[2017-04-21 04:14] VITALS: PULSE 70
[2017-04-21 07:51] VITALS: BP 128/68; RESP 17
[2017-04-21] MEDS: ASPIRIN 81 MG TAB PO SCH (08:36)
[2017-04-21] MEDS: NICOTINE (21 MG/24 HR) PATCH TRANSDERM SCH (08:36)
[2017-04-21 08:37] VITALS: PULSE 68
[2017-04-21] MEDS: METOPROLOL (XL) 25 MG TAB PO SCH (08:37)
[2017-04-21] MEDS: TICAGRELOR 90 MG TABLET PO SCH (08:39)
[2017-04-21 09:34] LABS: BASOPHILS % 0.3 % (0.0-2.0); EOSINOPHILS # 0.1 10^3/ul (0.0-0.5); EOSINOPHILS % 0.6 % (0.0-7.0); HEMATOCRIT 40.8 % (42.0-52.0); HEMOGLOBIN 13.7 g/dl (14.0-18.0); LYMPHOCYTES # 1.8 10^3/ul (0.8-2.9); LYMPHOCYTES % 18.9 % (15.0-51.0); MEAN CORPUSCULAR HEMOGLOBIN 30.8 pg (29.0-33.0); MEAN CORPUSCULAR HGB CONC 33.6 g/dl (32.0-37.0); MEAN CORPUSCULAR VOLUME 91.7 fl (82.0-101.0); MEAN PLATELET VOLUME 11.3 fl (7.4-10.4); MONOCYTE # 0.6 10^3/ul (0.3-0.9); MONOCYTES % 6.9 % (0.0-11.0); NEUTROPHIL # 6.7 10^3/ul (1.6-7.5); PLATELET COUNT 167 10^3/UL (140-415); RED BLOOD COUNT 4.45 10^6/ul (4.70-6.10); RED CELL DISTRIBUTION WIDTH 13.1 % (11.5-14.5); WHITE BLOOD COUNT 9.3 10^3/ul (4.8-10.8)
[2017-04-21 09:55] LABS: CALCIUM 9.2 mg/dl (8.4-10.2); CREATININE 0.74 mg/dl (0.61-1.24); POTASSIUM 4.1 mmol/L (3.5-5.1)
[2017-04-21] MEDS ORDERED: NICO1PAT6 TRANSDERM (10:51)
[2017-04-21] MEDS ORDERED: METO-335 PO (10:51)
[2017-04-21] MEDS ORDERED: ASPI81TA3 PO (10:51)
[2017-04-21] MEDS ORDERED: TICA90TA PO (10:51)
[2017-04-21] MEDS ORDERED: ATOR80TA75 PO (10:51)
--- NOTE | 2017-04-21 10:54 | PDOCDIS ---
Discharge Instructions DIAGNOSIS Discharge Diagnosis Cardiac arrest (STEMI) 51-year-old male who was brought in by EMS because of chest pain and shortness of breath and was found to have ST elevation myocardial infarction now admitted and managed as follows: 1. Inferior wall ST elevation myocardial infarction status post emergent cardiac cath with proximal RCA 90% stenosis status post PCI and mid PDA disease also status post PCI with drug-eluting stent 2. Transient cardiogenic shock during procedure: Patient required short course of pressors, resolved 3. Chronic coronary artery disease: Patient has been started on aspirin, Brilinta, Lipitor, metoprolol as tolerated 4. Chronic tobacco abuse: s/p cessation counselling . CONDITION Patient Condition: Stable HOME CARE INSTRUCTIONS: Special Diet: Low fat- low cholesterol ACTIVITY: Activity Restrictions: Slowly Increase Activity Rest between Activity FOLLOW UP/APPOINTMENTS Follow-up Plan * It's important you take your brilinta for at least a year! * Followup with your primary doctor within the next 1-2 weeks. If you don't have one please let someone know, we can give you resources that may help you pick one. You may call Dr Narayan Quigley's office. he's accepting new patients Name, Degree: Narayan Quigley MD Specialty: Internal Medicine Comments: Office Address: [address] [place] [address] Office Office You may also call your insurance company to assign one to you. * Review your medication list with your nurse before leaving and if you need new prescriptions please let your nurse know. * I may have made changes to your home medications or given you new prescriptions, please let your primary doctor know as well. * Stay compliant with your medications and report any side effects to your PCP or pharmacist. * Return to the ER if you have any concerns and cannot reach your doctors or call your insurance company, they usually have a nurse that can help you. . LIVE ROSAS Apr 21, 2017 10:54
[2017-04-21] MEDS ORDERED: VARE1TAB20 PO (11:03)
--- NOTE | 2017-04-21 11:04 | PDOCDIS ---
Discharge Instructions DIAGNOSIS Discharge Diagnosis Cardiac arrest (STEMI) 51-year-old male who was brought in by EMS because of chest pain and shortness of breath and was found to have ST elevation myocardial infarction now admitted and managed as follows: 1. Inferior wall ST elevation myocardial infarction status post emergent cardiac cath with proximal RCA 90% stenosis status post PCI and mid PDA disease also status post PCI with drug-eluting stent 2. Transient cardiogenic shock during procedure: Patient required short course of pressors, resolved 3. Chronic coronary artery disease: Patient has been started on aspirin, Brilinta, Lipitor, metoprolol as tolerated 4. Chronic tobacco abuse: s/p cessation counselling . CONDITION Patient Condition: Stable HOME CARE INSTRUCTIONS: Special Diet: Low fat- low cholesterol ACTIVITY: Activity Restrictions: Slowly Increase Activity Rest between Activity FOLLOW UP/APPOINTMENTS Follow-up Plan * It's important you take your brilinta for at least a year! * Followup with your primary doctor within the next 1-2 weeks. If you don't have one please let someone know, we can give you resources that may help you pick one. You may call Dr Narayan Quigley's office. he's accepting new patients Name, Degree: Narayan Quigley MD Specialty: Internal Medicine Comments: Office Address: [address] [place] [address] Office Office You may also call your insurance company to assign one to you. * Review your medication list with your nurse before leaving and if you need new prescriptions please let your nurse know. * I may have made changes to your home medications or given you new prescriptions, please let your primary doctor know as well. * Stay compliant with your medications and report any side effects to your PCP or pharmacist. * Return to the ER if you have any concerns and cannot reach your doctors or call your insurance company, they usually have a nurse that can help you. . REFERRALS Other Referrals Name, Degree Tez Morales MD Specialty Interventional Cardiology Comments Office Address [address] [place] [address] Office Office LIVE ROSAS Apr 21, 2017 11:04
--- NOTE | 2017-04-21 13:38 | DS ---
Date/Time of Note Date/Time of Note DATE: 04/21/17 TIME: 13:35 Discharge Summary Admission/Discharge Info Admit Date/Time Apr 19, 2017 at 14:08 Discharge Date/Time Apr 21, 2017 at 11:45 Discharge Diagnosis Cardiac arrest (STEMI) 51-year-old male who was brought in by EMS because of chest pain and shortness of breath and was found to have ST elevation myocardial infarction now admitted and managed as follows: 1. Inferior wall ST elevation myocardial infarction status post emergent cardiac cath with proximal RCA 90% stenosis status post PCI and mid PDA disease also status post PCI with drug-eluting stent 2. Transient cardiogenic shock during procedure: Patient required short course of pressors, resolved 3. Chronic coronary artery disease: Patient has been started on aspirin, Brilinta, Lipitor, metoprolol as tolerated 4. Chronic tobacco abuse: s/p cessation counselling . Hx of Present Illness This is a 51-year-old male who developed sudden right-sided chest pain at home, it is associated with nausea and diaphoresis but no vomiting. There is no fever , no abdominal pain, no recent history of dysuria hematuria or cough. Patient also denies palpitation. Patient is a chronic smoker. He called EMS, when paramedics arrived the patient was found to be in an acute ST elevation myocardial infarction. He was given aspirin around the hospital, and immediately go to the hospital he was emergently taken to the [facility]. He underwent PCI of his proximal RCA and mid PDA. Is currently being observed in the intensive care unit as is routine for post Procedures. He apparently suffered a transient episode of bradycardia as well as hypotension during the procedure. These were treated with short course of Levophed as well as atropine. She is currently somewhat drowsy, but he will arouse and answer questions, he states his pain is well controlled at this time. He has no new issues. Hospital Course 51-year-old male who was admitted for ST elevation myocardial infarction and underwent emergent angiogram and stent placement. Patient was observed intensive care unit, and also on telemetry floor for a total of 48 hours postintervention. At this time patient is a stable condition for discharge. Patient was counseled extensively on the need to quit smoking, was discharged on nicotine patches and Chantix therapy. Patient was also counseled on the need to remain compliant with antiplatelet therapy specifically Brilinta for at least a year. Unfortunately we found that Brilinta was not covered by patient' s insurance, so he was given a coupon from the company that will allow him to obtain the first month free, and a low co-pay for the next 3 months. Patient was encouraged to discuss with his primary care physician to obtain prior authorization for this drug before he runs out. Patient verbalized understanding and agreement with all these instructions and will follow up with his primary care doctor within 1-2 weeks. . Home Meds Active Scripts Varenicline Tartrate (Chantix) 1 Mg Tablet, 1 MG PO BID for 30 Days, TAB Prov:LIVE ROSAS M. 04/21/17 Aspirin (Aspirin) 81 Mg Chew, 81 MG PO DAILY for 30 Days, TAB 2 [facility] 04/[facility]17 Metoprolol Succinate* (Toprol XL*) 25 Mg Tab.sr.24h, 25 MG PO DAILY for 30 Days , 2 [facility] 04/21/17 Atorvastatin* (Atorvastatin*) 80 Mg Tablet, 80 MG PO HS for 30 Days, TAB 2 Refills Prov:LIVE ROSAS . 04/21/17 Ticagrelor* (Brilinta*) 90 Mg Tablet, 90 MG PO BID for 30 Days, TAB 3 Refills Prov:LIVE ROSAS . 04/21/17 Nicotine* (Nicotine* Patch) 21 mg/day Patch, 1 PATCH TRANSDERM DAILY for 30 Days , 2 Refills Prov:LIVE ROSAS . 04/21/17 Follow-up Plan * It's important you take your brilinta for at least a year! * Followup with your primary doctor within the next 1-2 weeks. If you don't have one please let someone know, we can give you resources that may help you pick one. You may call Dr Narayan Quigley's office. he's accepting new patients Name, Degree: Narayan Quigley MD Specialty: Internal Medicine Comments: Office Address: [address] [place], [place] [id number] Office Office You may also call your insurance company to assign one to you. * Review your medication list with your nurse before leaving and if you need new prescriptions please let your nurse know. * I may have made changes to your home medications or given you new prescriptions, please let your primary doctor know as well. * Stay compliant with your medications and report any side effects to your PCP or pharmacist. * Return to the ER if you have any concerns and cannot reach your doctors or call your insurance company, they usually have a nurse that can help you. . Primary Care Provider Benjamin Quispe MD Time spent on discharge: > 30 minutes Pending Labs Laboratory Tests Test 04/21/17 08:15 White Blood Count 9.310^3/ul (4.8-10.8) Red Blood Count 4.4510^6/ul (4.70-6.10) Hemoglobin 13.7g/dl (14.0-18.0) Hematocrit 40.8% (42.0-52.0) Mean Corpuscular Volume 91.7fl (82.0-101.0) Mean Corpuscular Hemoglobin 30.8pg (29.0-33.0) Mean Corpuscular Hemoglobin Concent 33.6g/dl (32.0-37.0) Red Cell Distribution Width 13.1% (11.5-14.5) Platelet Count 90896^3/UL (140-415) Mean Platelet Volume 11.3fl (7.4-10.4) Neutrophils % 73.0% (39.0-77.0) Lymphocytes % 18.9% (15.0-51.0) Monocytes % 6.9% (0.0-11.0) Eosinophils % 0.6% (0.0-7.0) Basophils % 0.3% (0.0-2.0) Nucleated Red Blood Cells % 0.0/100WBC (0.0-0.0) Neutrophils # 6.710^3/ul (1.6-7.5) Lymphocytes # 1.810^3/ul (0.8-2.9) Monocytes # 0.610^3/ul (0.3-0.9) Eosinophils # 0.110^3/ul (0.0-0.5) Basophils # 0.010^3/ul (0.0-0.1) Nucleated Red Blood Cells # 0.010^3/ul (0.0-0.0) Sodium Level 142mmol/L (135-144) Potassium Level 4.1mmol/L (3.5-5.1) Chloride Level 106mmol/L (97-110) Carbon Dioxide Level 26mmol/L (21-31) Anion Gap 14 (8-16) Blood Urea Nitrogen 15mg/dl (7-20) Creatinine 0.74mg/dl (0.61-1.24) Glucose Level 103mg/dl (70-220) Calcium Level 9.2mg/dl (8.4-10.2) LIVE ROSAS. Apr 21, 2017 13:38
== END 2017-04-21 11:45 | disposition home or self-care (01) | DRG 246 ==
LOC: E/R 10:49 → SDS 11:01 → CCL 11:01 → REC 14:08 → ICU 15:04 → MS4 04-20 17:50
PROVIDERS: ADMIT Family Medicine; ATTEND Family Medicine
PROC: 4A023N7 Measurement of Cardiac Sampling and Pressure, Left Heart, Percutaneous Approach (ICD-10-PCS; 2017-04-19)
PROC: B211YZZ Fluoroscopy of Multiple Coronary Arteries using Other Contrast (ICD-10-PCS; 2017-04-19)
PROC: B215YZZ Fluoroscopy of Left Heart using Other Contrast (ICD-10-PCS; 2017-04-19)
PROC: 027036Z Dilation of Coronary Artery, One Artery with Three Drug-eluting Intraluminal Devices, Percutaneous Approach (ICD-10-PCS; principal; 2017-04-19 11:00)
PROC: 02703ZZ Dilation of Coronary Artery, One Artery, Percutaneous Approach (ICD-10-PCS; 2017-04-19 11:00)
DX: I21.19 ST elevation (STEMI) myocardial infarction involving other coronary artery of inferior wall (principal); R57.0 Cardiogenic shock; R00.1 Bradycardia, unspecified; I25.10 Atherosclerotic heart disease of native coronary artery without angina pectoris; F17.200 Nicotine dependence, unspecified, uncomplicated
CPT/HCPCS: 71010; 80048; 80061; 82550; 82553; 83036; 83735; 84100; 84484; 85025; 85610; 85730; 87081; 93005; 93306; 93458; 96374; 96375; C1725; C1887; C1894; C9606; J0282; J0461; J0583; J1200; J1644; J2250; J2270; J3010; J7040; Q9967

== ENCOUNTER 2017-06-17 23:14 | Emergency (ER) | END 2017-06-18 01:23 | disposition left against medical advice (07) ==